=== PATIENT | male | born 1995 | race Caucasian/White ===

== ENCOUNTER 2017-11-19 11:27 | Inpatient (IN) | payer OTHER ==
[~2017-11-19] VITALS: Ht 182.9 cm; Wt 88.5 kg
[2017-11-19] MEDS ORDERED: MAG HYDROX/AL HYDROX/SIMETH 30 ML LIQUID UDC PO PRN (13:00)
[2017-11-19] MEDS ORDERED: diphenhydrAMINE 50 MG CAPSULE PO PRN (13:00)
[2017-11-19] MEDS ORDERED: ACETAMINOPHEN 325 MG TABLET PO PRN (13:00)
[2017-11-19] MEDS ORDERED: LORAZEPAM 1 MG TABLET PO PRN (13:00)
[2017-11-19] MEDS ORDERED: LORAZEPAM 2 MG/1 ML VIAL IM PRN (13:00)
[2017-11-19] MEDS ORDERED: DICYCLOMINE HCL 20 MG TABLET PO PRN (13:00)
[2017-11-19] MEDS ORDERED: LOPERAMIDE HCL 2 MG CAPSULE PO PRN ×2 (13:00)
[2017-11-19] MEDS ORDERED: MIRALAX 17 GM POWD.PACK PO PRN (13:00)
--- NOTE | 2017-11-19 13:15 | NUR ---
PRE ADMISSION PATIENT MET IN INTAKE OFFICE, HE IS A 22 YR OLD MALE BEING ADMITTED TO [facility] TO DETOX FROM ALCOHOL AND AMBIEN. PATIENT APPEARS CLEAN AND CALM ACCOMPANIED BY HIS MOTHER. VITAL SIGNS BP 134/71, HR 84, RR 16, O2 SATS 97% PATIENT STATES HE HAS A SLIGHT HEADACHE 3/10 PAIN. PATIENT IS AAOX4, NO SOB. DISCUSSED WITH PATIENT THE POLICIES OF THE UNIT, PATIENT IS ABLE TO RESPOND APPROPRIATELY. PATIENT VERBALIZED UNDERSTANDING REGARDING DISPOSAL OF NARCOTICS AND OTHER CONTROLLED SUBSTANCES, HOME MEDS, UNIT PROTOCOLS SUCH VS Q 4 HOURS AND HANDLING AND DISPOSAL OF CONTRABAND. WILL CONTINUE ASSESSMENT WHEN PATIENT IS ON THE FLOOR.
[2017-11-19 13:52] LABS: BASOPHILS % (AUTO) 0.3 % (0.0-2.0); EOSINOPHILS # (AUTO) 0.1 K/uL (0.0-0.7); EOSINOPHILS % (AUTO) 0.6 % (0.0-7.0); HEMATOCRIT 46.4 % (36.7-47.1); HEMOGLOBIN 15.9 g/dL (12.5-16.3); LYMPHOCYTES # (AUTO) 1.8 K/uL (20.0-40.0); LYMPHOCYTES % (AUTO) 21.6 % (20.5-51.5); MEAN CORPUSCULAR HGB CONC 34 g/dL (32.5-36.3); MEAN CORPUSCULAR VOLUME 87.5 fL (73.0-96.2); MONOCYTES # (AUTO) 0.9 K/uL (2.0-10.0); MONOCYTES % (AUTO) 10.9 % (0.0-11.0); NEUTROPHILS # (AUTO) 5.5 K/uL (1.8-8.9); NEUTROPHILS % (AUTO) 66.6 % (38.5-71.5); PLATELET COUNT (AUTO) 298 K/uL (152-348); WHITE BLOOD COUNT (AUTO) 8.3 K/uL (3.6-10.2)
--- NOTE | 2017-11-19 13:52 | NUR ---
ADMISSION ASSESSMENT PATIENT IS ON THE UNIT AND IS IN ROOM 302. PATIENT SKIN CHECK IS CLEAR, HE STANDS AT 6 FOOT AND 195LBS ON A STANDING SCALE. PATIENT STATES HE HAS NO HISTORY OF SEIZURES OR FALLS. THIS IS THE PATIENTS FIRST TIME IN TREATMENT, HE DID HAVE A PERIOD OF SOBRIETY FROM [id number], HE STATES HE IS " HERE TO GET SOBER SO THAT I CAN GO TO [place] ". PATIENT HISTORY OF SUBSTANCE ABUSE: ALCOHOL ( VODKA/TEQUILA) 750ML ON A NON DAILY BASIS FOR THE LAST 3 YEARS LAST CONSUMED 3 DAYS AGO 11/16/17 AMBIEN 10-30MG / DAY ON A NON DAILY BASIS FOR THE LAST 3 YEARS, LAST CONSUMED 11/16/17. PATIENT STATES HE IS ALLERGIC TO SULFA, PROZAC AND WELLBUTRIN HE IS FULL CODE AND ON A REGULAR DIET. PATIENT RECEIVED THE FLU SHOT THIS SEASON AND DECLINES PNEUMONIA VACCINE. HE IS AMBULATORY WITH A STEADY GAIT. WILL FOLLOW MD PLAN OF CARE, SAFETY MEASURES IN PLACE, BED LOW AND LOCKED AND SIDE RAILS UP X 2 Addendum: 11/19/17 at 1608 by KATJA MEJIA RN CIWA 9 ON ADMISSION
[2017-11-19 14:01] LABS: *AMPHETAMINE, URINE NEGATIVE (NEGATIVE); *BARBITURATE, URINE NEGATIVE (NEGATIVE); *CANNABINOID, URINE NEGATIVE (NEGATIVE); *COCCAINE, URINE NEGATIVE (NEGATIVE); *OPIATE, URINE NEGATIVE (NEGATIVE); *PHENCYCLIDINE SCREEN,URINE NEGATIVE (NEGATIVE)
[2017-11-19 14:02] LABS: ETHANOL < 3 MG/DL (0-0)
[2017-11-19 14:03] LABS: ALANINE AMINOTRANSFERASE 67 U/L (16-63); ALKALINE PHOSPHATASE 48 U/L (50-136); AMYLASE 57 U/L (25-115); ASPARTATE AMINOTRANSFERASE 25 U/L (15-37); BILIRUBIN,TOTAL 0.6 mg/dL (0.2-1.0); CARBON DIOXIDE 26 mmol/L (21-32); CHLORIDE 102 mmol/L (98-107); CREATININE 1.1 mg/dL (0.6-1.3); GLUCOSE 96 mg/dL (74-106); MAGNESIUM 2.1 mg/dL (1.8-2.4); TOTAL PROTEIN, SERUM 8.2 g/dL (6.4-8.2)
[2017-11-19 14:08] LABS: UREA NITROGEN, BLOOD 12 mg/dL (7-18)
[2017-11-19] MEDS: THIAMINE HCL 100 MG TABLET PO SCH (14:28)
[2017-11-19] MEDS: IBUPROFEN 400 MG TABLET PO PRN (14:28)
--- NOTE | 2017-11-19 14:30 | NUR ---
PRN MOTRIN 400MG MOTRIN PO GIVEN FOR C/O HEADACHE 12/09, WILL REASSESS
[2017-11-19] MEDS ORDERED: PARO25TA16 PO (15:15)
--- NOTE | 2017-11-19 15:30 | NUR ---
PRN REASSESS PATIENT STATES HEADACHE IS NOW 2/10, MOTRIN EFFECTIVE
[2017-11-19 16:00] VITALS: BP 146/83
--- NOTE | 2017-11-19 16:30 | NUR ---
PRN ATIVAN/CLONIDINE ATIVAN 1MG PO GIVEN FOR CIWA 12 AND INCREASED ANXIETY CLONIDINE 0.1MG PO GIVEN FOR BP 146/83 WILL REASSESS IN 1HR
[2017-11-19] MEDS: LORAZEPAM 1 MG TABLET PO PRN ×2 (16:33→22:10)
[2017-11-19] MEDS: CLONIDINE HCL 0.1 MG TABLET PO PRN (16:33)
--- NOTE | 2017-11-19 17:30 | NUR ---
PRN REASSESS ATIVAN EFFECTIVE, PATIENT STATES HE FEELS LESS ANXIOUS CIWA 9 CLONIDINE EFFECTIVE BP NOW 136/74 HR 80
--- NOTE | 2017-11-19 19:02 | NUR ---
END OF SHIFT : PATIENTIS A 22 YR OLD MALE ADMITTED TO [facility] ON 11/19/17 FOR WITHDRAWAL FROM ALCOHOL ( VODKA AND TEQUILA). PATIENT IS ON PRN MEDICATIONS AT THIS TIME. PRN MEDS GIVEN ON THIS SHIFT : MOTRIN 400MG PO FOR HEADACHE, ATIVAN 1MG PO FOR CIWA OF 12, CLONIDINE 0.1MG PO FOR INCREASED BP 146/83 WHICH DECREASED TO 136/74. PATIENT HAS NO HISTORY OF SEIZURES. FLUID INTAKE THIS SHIFT OF 855ML, 3 VOIDS AND 1 BM. SAFETY MEASURES IN PLACE BED LOW AND LOCKED AND SIDE RAILS UP X 2, LAST CIWA 9 @ 1740. ALL NEEDS MET. CONTINUE TO FOLLOW MD PLAN OF CARE.
--- NOTE | 2017-11-19 19:15 | NUR ---
Start of shift note Received report from day shift nurse. Pt is a 22 yo male, A+Ox4, presenting to [facility] for ETOH withdrawal. Pt noted to be anxious, agitated, restless, and having messy room with food on dresser and side table. Pt is on PRN Ativan regimen, tolerated well. Respirations even and unlabored. Will continue to monitor.
[2017-11-19 20:19] VITALS: BP 130/70
--- NOTE | 2017-11-19 22:10 | NUR ---
PRN Ativan 1mg Pt c/o anxiety and noted with CIWA: 8. PRN Ativan 1mg given and tolerated well. Will reassess within 1 HR. Will continue to monitor.
--- NOTE | 2017-11-19 23:05 | NUR ---
PRN Ativan 1mg Reassessment Medication effective. Pt expresses reduction in anxiety with CIWA: 6. No s/s of ASE noted at this time. Respirations even and unlabored. Will continue to monitor.
[2017-11-20 00:19] VITALS: BP 124/74
[2017-11-20 04:29] VITALS: BP 122/76
--- NOTE | 2017-11-20 07:01 | NUR ---
End of shift note Pt was continuously noted with anxiety, agitation, and restlessness. Pt remained in room for majority of shift except to get food from kitchen. Pt was given PRN Ativan 1mg @2210. Pt slept for a total of 7 HRS. Last CIWA: 8 @0400. Respirations even and unlabored. Will endorse to day shift nurse.
--- NOTE | 2017-11-20 07:20 | NUR ---
Start of Shift Notes: Received patient in his room. Laying in bed with eyes closed. Breathing even and unlabored. No SOB noted. Arousable when his name is called. Denies AV hallucinations. Appears drowsy upon waking. Patient is a 22 year old male admitted for ETOH withdrawal. On PRN Ativan at this time to manage his withdrawal symptoms. Has past medical hx of depression and insomnia. Allergic to Sulfa, Wellbutrin and Prozac. Patient appears disheveled and odorous. Encouraged maintenance of personal hygiene and space. Room is unkept with empty bottles on his bedside table. Encouraged patient to increase oral fluid intake and encouraged group participation to learn new skills to prevent relapse. Will continue to monitor closely.
[2017-11-20 08:00] VITALS: BP 142/94
[2017-11-20] MEDS: FOLIC ACID 1 MG TABLET PO SCH (08:18)
[2017-11-20] MEDS: CLONIDINE HCL 0.1 MG TABLET PO PRN ×2 (08:18→16:50)
[2017-11-20] MEDS: MULTIVITAMINS,THERAPEUTIC TABLET PO SCH (08:18)
[2017-11-20] MEDS: THIAMINE HCL 100 MG TABLET PO SCH (08:18)
--- NOTE | 2017-11-20 08:18 | NUR ---
Ativan 2 mg/Clonidine 0.1mg PO given Patient's blood pressure 142/94, Pulse 88. CIWA 14, patient presented with anxiety, agitation, tremors. Denies S/I or H/I. No AV hallucinations noted. Medicated patient with Ativan 2 mg PO and Clonidine 0.1mg PO as ordered. Will monitor for effectiveness.
[2017-11-20] MEDS ORDERED: TUBERCULIN,PURIF.PROT.DERIV. 5 TU/0.1 ML TEST ID ONE (09:00)
--- NOTE | 2017-11-20 09:18 | NUR ---
Re-assessment: Clonidine/Ativan Patient's blood pressure 134/82. Pulse 72. Patient verbalizes relief from anxiety, less sweating, less tremors noted. CIWA 4. PRN Ativan and Clonidine were effective in reducing patient's blood pressure and withdrawal symptoms.
[2017-11-20 10:08] LABS: HEPATITIS B SURFACE AG Negative (Negative)
[2017-11-20 12:00] VITALS: BP 137/83
[2017-11-20] MEDS ORDERED: DIPH50CA37 PO (14:26)
[2017-11-20] MEDS ORDERED: IBUP-1953 PO (14:26)
[2017-11-20] MEDS ORDERED: CLON0.1T14 PO (14:26)
[2017-11-20] MEDS ORDERED: LORAZEPAM 1 MG TABLET PO SCH ×2 (15:00→21:00)
[2017-11-20] MEDS: PAROXETINE HCL 20 MG TABLET PO SCH (15:04)
[2017-11-20 16:00] VITALS: BP 148/93
--- NOTE | 2017-11-20 16:50 | NUR ---
Clonidine 0.1mg PO given: Patient's blood pressure 148/93, Pulse 99. Denies chest pain, headache or dizziness. Patient complains of anxiety. Encouraged deep breathing exercises. Medicated patient with Clonidine 0.1mg PO as ordered. Will monitor for effectiveness.
--- NOTE | 2017-11-20 17:50 | NUR ---
Re-assessment: Clonidine Patient's blood pressure 135/85, [place] 80. PRN Clonidine was effective.
[2017-11-20] MEDS: IBUPROFEN 400 MG TABLET PO PRN (18:48)
--- NOTE | 2017-11-20 18:48 | NUR ---
Motrin 400 mg PO given: Patient complained of 6/10 headache. Non-pharmacological interventions provided but ineffective. Medicated patient with Motrin 400 mg PO as ordered. Will monitor for effectiveness.
--- NOTE | 2017-11-20 19:03 | NUR ---
End of Shift Notes: Patient was placed on a 2-day Ativan taper to manage withdrawals related to ETOH. VS monitored closely. Noted with episodes of elevated blood pressure requiring patient to be medicated with Clonidine 0.1mg PO at 0818 and at 1650. Withdrawal symptoms were closely monitored. Initial CIWA 14, patient presented with gross tremors, anxiety, sweating and agitation. Medicated patient with PRN Ativan 2 mg PO as ordered with help, CIWA after 1 hour was 4. Last CIWA 8. Per patient Ativan has been effective in reducing his withdrawal symptoms. Medicated patient with Motrin 400 mg PO for headache at 1848 with results pending. Compliant with care and treatment. Patient appears socially withdrawn, isolative, with flat affect, worried facial expression. He was anxious all throughout the day despite redirection and reassurance. Encouraged to socialize with his peers and to attend group for redirection and social interaction. Patient was seen by Dr. Rose and reconciled patients Walter. All needs met and attended. Will continue to monitor closely.
--- NOTE | 2017-11-20 19:11 | NUR ---
Start of shift note Received report from day shift nurse. Pt is a 22 yo male, A+Ox4, presenting to [facility] for ETOH withdrawal. Pt noted with anxiety, agitation, restlessness, and withdrawn demeanor. Pt has HX of Anxiety and depression which will be monitored during shift. Pt is on 2 day Ativan taper, tolerated well. Respirations even and unlabored. Will continue to monitor.
[2017-11-20 20:17] VITALS: BP 113/70
--- NOTE | 2017-11-20 20:29 | NUR ---
PRN Tylenol Pt c/o headache and requested for PRN Tylenol. Medication given and tolerated well. Will reassess within 1 HR. Will continue to monitor.
--- NOTE | 2017-11-20 21:25 | NUR ---
PRN Tylenol Reassessment Medication effective. Pt expresses reduction in headache. No s/s of ASE noted at this time. Respirations even and unlabored. Will continue to monitor.
[2017-11-21 00:15] VITALS: BP 119/76
[2017-11-21 04:28] VITALS: BP 122/78
--- NOTE | 2017-11-21 07:00 | NUR ---
End of shift note Pt was continuously noted with agitation, anxiety, and restlessness. Pt remained in his room for a majority of shift except to get food from kitchen. Pt was given PRN Tylenol for headache @2028. Pt slept for a total of 9 HRS. Last CIWA: 8 @0400. Respirations even and unlabored. Will endorse to day shift nurse.
--- NOTE | 2017-11-21 07:12 | NUR ---
Start of Shift Notes: Received patient in his room. Laying in bed with eyes closed. Breathing even and unlabored. No SOB noted. Arousable when his name is called. Denies AV hallucinations. Appears drowsy upon waking however complains of anxiety in AM. Patient is a 22 year old male admitted for ETOH withdrawal. On a 2-day Ativan taper to manage his withdrawal symptoms. Has past medical hx of depression and insomnia. Allergic to Sulfa, Wellbutrin and Prozac. Patient appears disheveled and odorous. Encouraged maintenance of personal hygiene and space. Room is unkept with empty bottles on his bedside table. Encouraged patient to increase oral fluid intake and encouraged group participation to learn new skills to prevent relapse. PRN Tylenol was given during the night. Last CIWA 9. Slept for 8 hours. Will continue to monitor closely.
[2017-11-21 08:00] VITALS: BP 146/93
[2017-11-21] MEDS: MULTIVITAMINS,THERAPEUTIC TABLET PO SCH (08:19)
[2017-11-21] MEDS: FOLIC ACID 1 MG TABLET PO SCH (08:19)
[2017-11-21] MEDS: PAROXETINE HCL 20 MG TABLET PO SCH (08:20)
[2017-11-21] MEDS: THIAMINE HCL 100 MG TABLET PO SCH (08:20)
[2017-11-21] MEDS: CLONIDINE HCL 0.1 MG TABLET PO PRN (08:20)
--- NOTE | 2017-11-21 08:20 | NUR ---
Clonidine 0.1mg PO given: Patient's blood pressure 146/93. CIWA 14, due to anxiety/agitation. Denies any complains of headache, dizziness and/or chest pain. Medicated patient with Clonidine 0.1mg PO as ordered. Will monitor for effectiveness.
[2017-11-21] MEDS ORDERED: LORAZEPAM 1 MG TABLET PO SCH (09:00)
--- NOTE | 2017-11-21 09:20 | NUR ---
Re-assessment: Clonidine Patient;s blood pressure 133/81, Pulse 79. PRN Clonidine was effective in reducing patient's blood pressure.
[2017-11-21 12:00] VITALS: BP 132/79
--- NOTE | 2017-11-21 12:30 | NUR ---
Therapist prompted client to attend all groups while in treatment to increase feelings of being connected to others and not be isolated in bedroom. Therapist explained the benefits of attending groups such as learning new coping tools, learning about feelings/emotions and being able to learn to decrease negative feelings and thoughts
[2017-11-21] MEDS: IBUPROFEN 400 MG TABLET PO PRN (14:53)
--- NOTE | 2017-11-21 14:53 | NUR ---
Motrin 400 mg PO given: Patient noted with complain of 5/10 headache. Medicated patient with Motrin 400 mg PO as ordered. Will monitor for effectiveness.
--- NOTE | 2017-11-21 15:53 | NUR ---
Re-assessment: Motrin Per patient, PRN Motrin was effective in reducing patient's headache. PL 0/10.
[2017-11-21 16:00] VITALS: BP 124/70
--- NOTE | 2017-11-21 19:01 | NUR ---
End of Shift Notes: Patient completed his 2 day Ativan taper. Tolerated taper well. VS monitored closely. Noted with episodes of elevated blood pressure requiring patient to be medicated with Clonidine 0.1mg PO at 0820. Withdrawal symptoms were closely monitored. Initial CIWA 14, patient presented with gross tremors, anxiety, sweating and agitation. Denies S/I or H/I or AV hallucinations. Last CIWA 10. Per patient Ativan has been effective in reducing his withdrawal symptoms. Medicated patient with Motrin 400 mg PO as ordered for headache at 1453 with help after 1 hour. Compliant with care and treatment. Patient appears socially withdrawn, isolative, with flat affect, worried facial expression. He was anxious all throughout the day despite redirection and reassurance. Encouraged to socialize with his peers and to attend group for redirection and social interaction. All needs met and attended. Will continue to monitor closely.
--- NOTE | 2017-11-21 19:12 | NUR ---
Start of shift note Received report from day shift nurse. Pt is a 22 yo male, A+Ox4, presenting to [facility] for ETOH withdrawal. Pt noted to be anxious, agitated, and restless. Pt has completed 2 day Ativan taper, tolerated well, and is due for discharge tomorrow. Pt has HX of Anxiety and Depression which will be monitored during shift. Respirations even and unlabored. Will continue to monitor.
[2017-11-21 20:43] VITALS: BP 136/78
--- NOTE | 2017-11-21 22:45 | NUR ---
PRN Benadryl and Imodium Pt c/o diarrhea and inability to sleep and requested for PRN Benadryl and Imodium. Medications given and tolerated well. Will reassess within 1 HR. Will continue to monitor.
--- NOTE | 2017-11-21 23:45 | NUR ---
PRN Benadryl and Imodium Reassessment PRN Imodium effective. Pt expresses relief of symptoms. PRN Benadryl ineffective. Pt still noted with inability to sleep. No s/s of ASE noted at this time. Respirations even and unlabored. Will continue to monitor.
[2017-11-22] MEDS ORDERED: TRAZODONE 50 MG TABLET PO ONE
[2017-11-22] MEDS ORDERED: TRAZODONE 50 MG TABLET PO SCH
--- NOTE | 2017-11-22 00:08 | NUR ---
One time Trazodone Pt c/o inability to sleep and requested for sleep aid. MD notified and provided One time dose of Trazodone 50mg. Medication given and tolerated well. Will reassess within 1 HR. Will continue to monitor.
[2017-11-22 00:21] VITALS: BP 128/74
--- NOTE | 2017-11-22 01:05 | NUR ---
One time Trazodone Reassessment Medication effective. Pt is resting well in bed. No s/s of ASE noted at this time. Respirations even and unlabored. Will continue to monitor.
[2017-11-22 04:12] VITALS: BP 124/70
--- NOTE | 2017-11-22 06:53 | NUR ---
End of shift note Pt was continuously noted with anxiety, agitation, and restlessness. Pt remained in room for majority of shift except to get food from kitchen, to go smoke on smoking patio, and to interact with others in recreational room. Pt was given PRN Benadryl and Imodium @2245 and One time dose of Trazodone 50mg @0008. Pt has completed 2 day Ativan taper, tolerated well, and is due for discharge today. Pt slept for a total of 7 HRS. Last CIWA: 6 @0400. Respirations even and unlabored. Will endorse to day shift nurse.
--- NOTE | 2017-11-22 07:58 | NUR ---
START OF SHIFT:RECEIVED PT SITTING UP IN BED A/O X 4. HE REPORTS ANXIETY AND STATES HE IS ANXIOUS ABOUT DISCHARGE AND REALLY WANTS TO SUCCEED IN RECOVERY THIS TIME. OFFERED SUPPORT. DETOX MEDS COMPLETED. CIWA 3 HE STATES HE SLEPT RESTLESS LAST NIGHT. VS WNL.MEDICATED ORDERED. WILL CONTINUE WITH DISCHARGE PROCESS PLANNED FOR THIS AM. WILL CONTINUE TO MONITOR.
[2017-11-22 08:00] VITALS: BP 116/72
[2017-11-22 08:01] VITALS: BP 116/72
[2017-11-22] MEDS: THIAMINE HCL 100 MG TABLET PO SCH (08:19)
[2017-11-22] MEDS: PAROXETINE HCL 20 MG TABLET PO SCH (08:19)
[2017-11-22] MEDS: MULTIVITAMINS,THERAPEUTIC TABLET PO SCH (08:19)
[2017-11-22] MEDS: FOLIC ACID 1 MG TABLET PO SCH (08:19)
--- NOTE | 2017-11-22 09:54 | NUR ---
DISCHARGE: PT IS A/O X 4. HE DENIES S/I AND H/I. HE STATES HE FEELS ENTHUSIASTIC TOWARD RECOVERY. BELONGINGS RETURNED. EDUCATED PT ON DISCHARGE MEDS AND INSTRUCTIONS. PT EXPRESSED VERBAL UNDERSTANDING OF EDUCATION . SUPERVISOR SH[facility]TLE PREPARATION ESCORTED PT TO [facility] WHERE HE WAS TRANSPORTED BY [facility] TO [facility] AT 0932.
== END 2017-11-22 09:32 | disposition other institution (70) | DRG 897 ==
LOC: SRC 12:39
PROVIDERS: ADMIT Internal Medicine; ATTEND Internal Medicine
PROC: HZ2ZZZZ Detoxification Services for Substance Abuse Treatment (ICD-10-PCS; principal; 2017-11-19)
DX: F10.239 Alcohol dependence with withdrawal, unspecified (principal); K70.9 Alcoholic liver disease, unspecified; I15.9 Secondary hypertension, unspecified; F13.10 Sedative, hypnotic or anxiolytic abuse, uncomplicated; F17.210 Nicotine dependence, cigarettes, uncomplicated; F32.9 Major depressive disorder, single episode, unspecified; G47.00 Insomnia, unspecified; Y90.9 Presence of alcohol in blood, level not specified; Z81.1 Family history of alcohol abuse and dependence; Z79.899 Other long term (current) drug therapy; F41.9 Anxiety disorder, unspecified
CPT/HCPCS: 36415; 80307; 83735; 85025; 86580; 86592; 86705; 86803; 87340; 87806; A4663; G0480; Q0163